=== PATIENT | male | born 1935 | race Caucasian/White ===

== ENCOUNTER 2019-04-12 14:39 | Emergency (ER) | payer OTHER ==
[~2019-04-12] VITALS: Ht 182.9 cm; Wt 73.9 kg
[2019-04-12] MEDS ORDERED: ZESTRIL20 MG PO (14:49)
[2019-04-12] MEDS ORDERED: PACERONE200 MG PO (14:49)
[2019-04-12] MEDS ORDERED: LASIX 20 MG TAB20 MG PO (14:50)
[2019-04-12] MEDS ORDERED: LOPRESSOR50 MG PO (14:50)
[2019-04-12] MEDS ORDERED: HYDROCHLOROTHIA25 M2 PO (14:50)
[2019-04-12] MEDS ORDERED: PRESERVISION A1 EACH PO (14:50)
[2019-04-12] MEDS ORDERED: LORATIDINE 10 M10 M1 PO (14:50)
[2019-04-12] MEDS ORDERED: ASA81BEC PO (14:51)
[2019-04-12] MEDS ORDERED: SLOW FE142 MG PO (14:51)
[2019-04-12] MEDS ORDERED: AZELASTINE205.5 MCG/ NARES (14:51)
[2019-04-12] MEDS ORDERED: SUPER THERAVIT1 EACH PO (14:51)
[2019-04-12] MEDS ORDERED: FLONASE 0.05%50 MCG NARES (14:51)
[2019-04-12] MEDS ORDERED: RESTORIL7.5 M1 PO (14:51)
[2019-04-12] MEDS ORDERED: PRAVASTATIN SOD40 MG PO (14:51)
[2019-04-12] MEDS ORDERED: FLOMAX0.4 MG PO (14:51)
[2019-04-12] MEDS ORDERED: PROSCAR 5MG TABL5 M1 PO (14:52)
[2019-04-12 16:37] VITALS: BP 131/84
== END 2019-04-12 16:38 | disposition home or self-care (01) ==
LOC: M.ERS 14:39
DX: S51.811A Laceration without foreign body of right forearm, initial encounter (principal); I10 Essential (primary) hypertension; Z86.73 Personal history of transient ischemic attack (TIA), and cerebral infarction without residual deficits; W01.0XXA Fall on same level from slipping, tripping and stumbling without subsequent striking against object, initial encounter; Y93.89 Activity, other specified; Y92.89 Other specified places as the place of occurrence of the external cause; Y99.8 Other external cause status